=== PATIENT | female | born 1980 | race Two or more races ===

== ENCOUNTER 2018-08-02 09:43 | Day surgery (SDC) | payer MEDICAID ==
[2018-08-01 11:40] LABS: HEMOGLOBIN 14.9 g/dL (12.0-15.5); MEAN CORPUSCULAR HEMOGLOBIN 31.2 pg (27.0-33.4); MEAN CORPUSCULAR HGB CONC 35.5 g/dL (32.0-36.0); MEAN CORPUSCULAR VOLUME 88 fl (80-97); PLATELET COUNT 246 10^3/uL (150-450); RED BLOOD COUNT 4.78 10^6/uL (3.72-5.28); WHITE BLOOD COUNT 9.2 10^3/uL (4.0-10.5)
[2018-08-01 11:41] LABS: APPEARANCE,URINE SLIGHTLY-CLOUDY; BILIRUBIN,URINE NEGATIVE (NEGATIVE); COLOR,URINE YELLOW; GLUCOSE, URINE NEGATIVE (NEGATIVE); KETONES,URINE NEGATIVE (NEGATIVE); LEUKOCYTE ESTERASE,URINE NEGATIVE (NEGATIVE); NITRITE,URINE NEGATIVE (NEGATIVE); PROTEIN,URINE NEGATIVE (NEGATIVE); URINE SPECIFIC GRAVITY 1.012; UROBILINOGEN,URINE NEGATIVE mg/dL (<2.0)
[~2018-08-02 09:43] MED LIST: LACTATED RINGERS 1000 ML IV PRN; LIDOCAINE 0.5% INJ-PF (5 MG/ML) 50 ML SDV SUBCUT PRN
[2018-08-02] MEDS ORDERED: SCOPOLAMINE HYDROBROMIDE 1.5 MG PATCH.TD72 ONE (10:28)
[2018-08-02] MEDS ORDERED: ALBUTEROL SULFATE 0.083% NEB 2.5 MG/3 ML AMPUL NEB ONE (10:28)
[2018-08-02] MEDS ORDERED: FAMOTIDINE INJ/PF 20 MG/2 ML SDV IV ONE (10:29)
[2018-08-02] MEDS ORDERED: BUPIVACAINE HCL 0.25 % INJ/PF (2.5 MG/1 ML) 30 ML VIAL ONE (10:39)
[2018-08-02] MEDS ORDERED: FENTANYL CITRATE INJ/PF 100 MCG/2 ML AMPUL ONE ×4 (11:22→12:43)
[2018-08-02] MEDS ORDERED: ONDANSETRON HCL INJ/PF 4 MG/2 ML SDV ONE (11:22)
[2018-08-02] MEDS ORDERED: MIDAZOLAM 2 MG/2 ML INJ ONE (11:22)
[2018-08-02] MEDS ORDERED: MORPHINE SULFATE 10 MG/ML INJ ONE (11:22)
[2018-08-02] MEDS ORDERED: DEXAMETHASONE SOD PHOSPHATE INJ 4 MG/1 ML VIAL ONE (11:22)
[2018-08-02] MEDS ORDERED: PROPOFOL INJ 200 MG/20 ML VIAL IV ONE (11:23)
[2018-08-02] MEDS ORDERED: ACETAMINOPHEN 1,000 MG/100 ML RTUPB IV ONE (11:32)
[2018-08-02] MEDS ORDERED: MEPERIDINE HCL/PF INJ 25 MG/1 ML DISP.SYRIN IV PRN (12:00)
[2018-08-02] MEDS ORDERED: DIPHENHYDRAMINE HCL 50 MG/ML VIAL IV PRN (12:00)
[2018-08-02] MEDS ORDERED: PROMETHAZINE HCL INJ 25 MG/1 ML VIAL IV PRN ×2 (12:00)
[2018-08-02] MEDS ORDERED: FENTANYL CITRATE INJ/PF 100 MCG/2 ML AMPUL IV PRN ×3 (12:00)
[2018-08-02] MEDS ORDERED: HYDROMORPHONE HCL INJ/PF 2 MG/ML AMPULE ONE (12:44)
[2018-08-02] MEDS: FENTANYL CITRATE INJ/PF 100 MCG/2 ML AMPUL ONE ×2 (13:00→13:05)
[2018-08-02] MEDS ORDERED: ACETAMINOPHEN WITH CODEINE #3 TABLET PO PRN (13:25)
[2018-08-02] MEDS ORDERED: OXYCODONE-ACETAMINOPHEN 5-325 MG TABLET PO PRN (13:26)
[2018-08-02] MEDS ORDERED: OXYCODONE-ACETAMINOPHEN 5-325 MG TABLET ONE (13:40)
[2018-08-02 14:51] VITALS: BP 143/81
--- NOTE | 2018-08-02 14:57 | OPERATIVE REPORT E ---
Operative Report NAME: JENNA MOREJON : 1980 AGE: 37Y DATE OF SURGERY: ROOM: PREOPERATIVE DIAGNOSIS: Desire for sterilization. POSTOPERATIVE DIAGNOSIS: Desire for sterilization. PROCEDURE: Bilateral tubal occlusion using Filshie clips and removal of a Nexplanon. SURGEON: Aroldo MATTA M.D. ESTIMATED BLOOD LOSS: Less than 5 mL. ANESTHESIA: General. PROCEDURE: The patient was placed in the dorsal lithotomy position, prepped and draped in a sterile fashion. A speculum was placed. single-tooth tenaculum was removed. Bladder was drained with a catheter. A midline subumbilical incision was made, trocar was introduced, insufflation of the abdomen. Due to not being able to see adequately through the operative scope a second puncture was made on the left and a 5 was introduced and a 5 scope was used and the pelvis was visualized. Tubes, uterus, and ovaries appeared to be normal. The first attempt to place a Filshie clip on the right, the clip came off from the brain surgeon and it was found and grasped and removed from the abdomen. On the second attempt the right fallopian tube was occluded in the proximal portion, a good purchase of tissue being noted. The procedure was repeated on the left, again with a good knuckle of tissue and purchase being noted. The tubes were identified to the perimeter of fimbriae prior to and after the occlusion. The abdomen was deflated. Trocar sleeves were removed. The subumbilical incision was closed using 0 Vicryl in the fascia and subcutaneous 4-0 for the skin. The second puncture was closed using Dermabond. Attention was turned to her left arm where a small incision was made and the Nexplanon was removed and then bandaged appropriately. The patient tolerated well, taken to recovery room in good condition. DICTATING PHYSICIAN: Aroldo MATTA M.D. [id number] PHY#: [id number] ID: [id number] JOB#: [id number] ACCT: [id number] cc:Aroldo MATTA M.D. >
[2018-08-02] MEDS ORDERED: ONDANSETRON HCL 8 MG TABLET PO SCH (15:00)
[2018-08-02] MEDS ORDERED: SUCCINYLCHOLINE CHLORIDE INJ 200 MG/10 ML VIAL ONE (15:42)
== END 2018-08-02 14:48 | disposition home or self-care (01) ==
LOC: OROUT 09:43
PROVIDERS: ATTEND Obstetrics & Gynecology Gynecology
DX: Z30.2 Encounter for sterilization (principal); Z30.49 Encounter for surveillance of other contraceptives; I10 Essential (primary) hypertension; F17.210 Nicotine dependence, cigarettes, uncomplicated; K21.9 Gastro-esophageal reflux disease without esophagitis; Z79.899 Other long term (current) drug therapy; Z88.6 Allergy status to analgesic agent
CPT/HCPCS: 58671; 11982; 36415; 84132; 85027; 81005; 81025; 94640; J2250; J1100; J3010; J3490; J1170; J0330; J2405; S0020; J2704; S0028; J0131; 851; J2270

== ENCOUNTER → 2019-02-19 | Outpatient (CLI) | payer MEDICAID ==
--- NOTE | 2019-02-19 13:18 | RADIOLOGY REPORT (SQ) ---
EXAM DESCRIPTION: ANKLE RIGHT COMPLETE COMPLETED DATE/TIME: 02/19/2019 12:50 pm REASON FOR STUDY: PAIN IN RIGHT ANKLE AND JOINTS OF RIGHT FOOT M25.571 PAIN IN RIGHT ANKLE AND JOIN TS OF RIGHT FOOT COMPARISON: None. NUMBER OF VIEWS: Three views. TECHNIQUE: AP, lateral, and oblique without weight bearing radiographic images acquired of the right ankle. LIMITATIONS: None. FINDINGS: MINERALIZATION: Normal. BONES: No acute fracture or dislocation. No worrisome bone lesions. No significant osteophytes. JOINTS: No effusions. SOFT TISSUES: No soft tissue swelling. No foreign body. OTHER: There is a small calcaneal spur at the insertion site of the plantar aponeurosis. IMPRESSION: NO SIGNIFICANT FINDING IN THE RIGHT ANKLE. NO EXPLANATION FOR PAIN. TECHNICAL DOCUMENTATION: JOB ID: [id number] [employer]- All Rights Reserved Reading location - IP/workstation name: [email or web address]
== END ==
LOC: OD 12:08
PROVIDERS: ATTEND Nurse Practitioner Acute Care
DX: M25.571 Pain in right ankle and joints of right foot (principal)

== ENCOUNTER → 2019-07-18 | Outpatient (CLI) | payer MEDICAID ==
--- NOTE | 2019-07-18 11:14 | RADIOLOGY REPORT (SQ) ---
EXAM DESCRIPTION: ELBOW LEFT >2 VIEWS COMPLETED DATE/TIME: 07/18/2019 11:05 am REASON FOR STUDY: PAIN IN LEFT ELBOW M25.522 PAIN IN LEFT ELBOW COMPARISON: None. NUMBER OF VIEWS: Four views. TECHNIQUE: AP, lateral, and both oblique radiographic images acquired of the left elbow. LIMITATIONS: None. FINDINGS: MINERALIZATION: Normal. BONES: No acute fracture or dislocation. No worrisome bone lesions. JOINT: No effusion. SOFT TISSUES: No soft tissue swelling. No foreign body. OTHER: No other significant finding. IMPRESSION: NEGATIVE STUDY OF THE LEFT ELBOW. NO RADIOGRAPHIC EVIDENCE OF ACUTE INJURY. TECHNICAL DOCUMENTATION: JOB ID: [id number] 2010 [employer]- All Rights Reserved Reading location - IP/workstation name: [email or web address]
== END ==
LOC: RAD 10:45
PROVIDERS: ATTEND Nurse Practitioner Family
DX: M25.522 Pain in left elbow (principal)

== ENCOUNTER → 2019-10-17 | Outpatient (CLI) | payer MEDICAID ==
--- NOTE | 2019-10-17 14:19 | RADIOLOGY REPORT (SQ) ---
EXAM DESCRIPTION: MRI LUMBAR SPINE WITHOUT IMAGES COMPLETED DATE/TIME: 10/17/2019 11:58 am REASON FOR STUDY: M54.41 LUMBAGO WITH SCIATICA, RIGHT SIDE R20.0 ANESTHESIA OF SKIN M54.41 LUMBAGO WITH SCIATICA, RIGHT SIDE COMPARISON: None. TECHNIQUE: Sagittal and Axial imaging includes T1, T2, STIR and gradient echo sequences. Coronal T2/ HASTE imaging. LIMITATIONS: None. FINDINGS: VISUALIZED UPPER ABDOMEN: Limited evaluation. SEGMENTATION: There are 5 lumbar-type vertebral bodies. There is no transitional segment at the lumb osacral junction. ALIGNMENT: Anatomic. VERTEBRAE: The lumbar vertebral body heights are intact. BONE MARROW: Abnormal low T1 and high T2/ STIR marrow signal centered around the endplates at the L3- L4 level. DISC SIGNAL: The L2-L3 intervertebral disc is desiccated. The L3-L4 intervertebral disc is narrowed and there is increased T2/FLAIR signal in the disc. POSTERIOR ELEMENTS: Intact. HARDWARE: None in the spine. CORD AND CONUS: The conus medullaris terminates at the level of L1 and is normal in caliber and signa l intensity. SOFT TISSUES: No abnormality. L1-L2: No spinal or foraminal stenosis. L2-L3: No spinal or foraminal stenosis. L3-L4: Broad-based disc bulge eccentric to the right that abuts the intraforaminal right L3 nerve romero t. L4-L5: Broad-based disc bulge eccentric to the right that encroaches upon the inferior aspect of the neuroforamina without mass effect upon the nerve roots. There is no spinal or foraminal stenosis at L4-L5. L5-S1: No spinal or foraminal stenosis. LOWER THORACIC: No stenosis. SACRUM: Intact. OTHER: No other findings. IMPRESSION: 1. Abnormal low T1 and high T2/ STIR marrow signal centered around the endplates at the L3-L4 level. This pattern of marrow signal abnormality is typical in the setting of discitis/osteomy elitis and correlation with clinical findings / further evaluation with a contrast-enhanced MRI shoul d be considered. 2. Broad-based disc bulge eccentric to the right at L3-L4 that abuts the intraforaminal right L3 ner ve root. TECHNICAL DOCUMENTATION: JOB ID: [id number] 2010 [employer]- All Rights Reserved Reading location - IP/workstation name: [email or web address]
== END ==
LOC: RAD 11:07
PROVIDERS: ATTEND Nurse Practitioner Family
DX: M51.16 Intervertebral disc disorders with radiculopathy, lumbar region (principal)
CPT/HCPCS: 72148

== ENCOUNTER → 2019-12-09 | Outpatient (CLI) | payer MEDICAID ==
--- NOTE | 2019-12-09 16:32 | RADIOLOGY REPORT (SQ) ---
EXAM DESCRIPTION: MRI LUMBAR SPINE COMBO IMAGES COMPLETED DATE/TIME: 12/09/2019 10:20 am REASON FOR STUDY: DISCITIS, UNSPECIFIED, LUMBAR REGION M46.46 DISCITIS, UNSPECIFIED, LUMBAR REGION COMPARISON: 10/17/2019. TECHNIQUE: Sagittal and Axial imaging includes T1, T1 post gadolinium, T2, STIR and gradient echo se quences. Coronal T2/HASTE imaging. CONTRAST TYPE AND DOSE: 20 mL Prohance. RENAL FUNCTION: Not indicated. ACR Type II contrast agent associated with few, if any, unconfounded cases of NSF LIMITATIONS: None. FINDINGS: VISUALIZED UPPER ABDOMEN: Limited evaluation. No acute or suspicious findings suggested. SEGMENTATION: No transitional anatomy. The lowest well-developed disc space is labeled L5-S1. ALIGNMENT: Anatomic. VERTEBRAE: Intact. No fractures. BONE MARROW: No marrow replacement. Again seen is abnormal marrow signal in the endplates on either side of L3-L4 disc. Heterogenous generally decreased signal on T1 and increased signal on T2 and STI R images. There is associated enhancement on the postcontrast images. DISC SIGNAL: Normal. No significant abnormal signal or loss of height. POSTERIOR ELEMENTS: Generally intact. No pars defect evident. HARDWARE: None in the spine. CORD AND CONUS: Normal in size and signal intensity. Conus at the appropriate level. SOFT TISSUES: No aortic aneurysm seen. No bulky retroperitoneal adenopathy or mass. No paraspinal mas s or fluid. L1-L2: No significant spinal stenosis or exit foraminal stenosis. L2-L3: No significant spinal stenosis or exit foraminal stenosis. L3-L4: Decreased height of the disc. No significant disc enhancement. Mild diffuse posterior annula r bulge with mild right exit foraminal stenosis. No spinal stenosis. L4-L5: Minimal right lateral disc bulge with increased signal suggesting a small annular fissure. Herbie rderline encroachment of the right neural foramen. No spinal stenosis. L5-S1: No significant spinal stenosis or exit foraminal stenosis. LOWER THORACIC: Incompletely imaged. No stenosis seen. SACRUM: Visualized upper sacrum intact. ENHANCEMENT: See above. OTHER: No other significant findings. IMPRESSION: 1. AGAIN SEEN IS ABNORMAL MARROW SIGNAL OF THE L3 AND L4 ENDPLATES ADJACENT TO THE L3-L4 DISC WELL MARROW ENHANCEMENT. FINDINGS ARE SUSPICIOUS FOR CHRONIC DISCITIS AND OSTEOMYELITIS. NO SIGNIFIC ANT INTERVAL CHANGE. NO EVIDENCE OF SOFT TISSUE OR EPIDURAL ABSCESS. 2. MILD DEGENERATIVE DISC DISEASE AT L3-L4 AND L4-L5 WITH MILD RIGHT EXIT FORAMINAL STENOSIS DESCR IBED. TECHNICAL DOCUMENTATION: JOB ID: [id number] 2010 [employer]- All Rights Reserved Reading location - IP/workstation name: [email or web address]
== END ==
LOC: RAD 09:25
PROVIDERS: ATTEND Internal Medicine Infectious Disease
DX: M46.46 Discitis, unspecified, lumbar region (principal); M48.061 Spinal stenosis, lumbar region without neurogenic claudication
CPT/HCPCS: 82565; 72158; A9576